=== PATIENT | male | born 1980 | race Caucasian/White ===

== ENCOUNTER 2022-10-26 04:02 | Outpatient (CLI) | payer BC, SELFPAY ==
[2022-10-26 07:54] LABS: MCH 32.1 pg (27.0-33.0); MCHC 33.3 % (32.0-36.0); MCV 97 fL (80-95); MPV 10.7 fL (8.0-11.0); Platelet Count 237 10^3/uL (130-400); RBC 5.95 10^6/uL (4.36-5.78); RDW 12.9 % (11.8-14.1); RDW-SD 46.1 fL; WBC 7.17 10^3/uL (4.4-10.8)
[2022-10-26 08:04] LABS: HGB 19.1 g/dL (13.5-17.5)
[2022-10-26 08:05] LABS: HCT 57.4 % (40.0-50.0)
[2022-10-26 09:27] LABS: ALT 72 U/L (16-63); AST 36 U/L (15-37); Alkaline Phosphatase 93 U/L (46-116); Anion Gap 8.2 mmol/L (3-11); BUN 15 mg/dL (7-18); Bilirubin, Total 0.8 mg/dL (0.2-1.0); CO2 29.8 mmol/L (21.0-32.0); CREATININE 1.3 mg/dL (0.70-1.30); Calcium 9.3 mg/dL (8.5-10.1); Calculated LDL 186 mg/dL (<100); Chloride 100 mmol/L (98-107); Cholesterol 258 mg/dL (<200); Estimated GFR 70.78 (mL/min/1.73m2); Glucose 93 mg/dL (74-106); HDL Cholesterol 38 mg/dL (40-60); Potassium 4.3 mmol/L (3.5-5.1); Sodium 138 mmol/L (136-145); TSH (W/Ref FT4) 2.04 uIU/mL (0.36-3.74); Triglyceride 171 mg/dL (<150)
[2022-10-26 12:21] LABS: Hemoglobin A1C 5.1 % (<5.7)
== END 2022-10-26 04:03 | disposition home or self-care (01) ==
LOC: LBO 04:02
PROVIDERS: PCP Nurse Practitioner Family; Visit Provider Nurse Practitioner Family
DX: R53.83 Other fatigue (principal); Z13.220 Encounter for screening for lipoid disorders; Z13.1 Encounter for screening for diabetes mellitus
CPT/HCPCS: 36415; 80053; 80061; 85027; 83036; 84443

== ENCOUNTER 2023-01-12 07:56 | Outpatient (CLI) | payer BC, SELFPAY ==
[2023-01-12 12:14] LABS: Abs Immature Grans 0.07 10^3/uL (0.0-0.06); Absolute Basophil Count 0.08 10^3/uL (0.0-0.2); Absolute Eosinophil Count 0.22 10^3/uL (0.0-0.7); Absolute Lymphocyte Count 1.91 10^3/uL (1.2-3.4); Absolute Monocyte Count 0.88 10^3/uL (0.1-0.8); Absolute Neutrophil Count 4.37 10^3/uL (1.2-6.7); Basophils % 1.1; Eosinophils % 2.9; HCT 49.4 % (40.0-50.0); HGB 16.5 g/dL (13.5-17.5); Immature Grans % 0.9; Lymphocytes % 25.4; MCH 32.8 pg (27.0-33.0); MCHC 33.4 % (32.0-36.0); MCV 98 fL (80-95); Monocytes % 11.7; Platelet Count 234 10^3/uL (130-400); RBC 5.03 10^6/uL (4.36-5.78); RDW 13.3 % (11.8-14.1); RDW-SD 48.8 fL; WBC 7.53 10^3/uL (4.4-10.8)
== END 2023-01-12 07:57 | disposition home or self-care (01) ==
PROVIDERS: PCP Nurse Practitioner Family; Visit Provider Nurse Practitioner Family
DX: R71.8 Other abnormality of red blood cells (principal)
CPT/HCPCS: 36415; 85025

== ENCOUNTER 2023-12-06 03:02 | Outpatient (CLI) | payer BC, SELFPAY ==
[2023-12-06 13:49] LABS: Abs Immature Grans 0.02 10^3/uL (0.0-0.06); Absolute Basophil Count 0.08 10^3/uL (0.0-0.2); Absolute Eosinophil Count 0.12 10^3/uL (0.0-0.7); Absolute Lymphocyte Count 1.76 10^3/uL (1.2-3.4); Absolute Monocyte Count 0.45 10^3/uL (0.1-0.8); Absolute Neutrophil Count 3.97 10^3/uL (1.2-6.7); Basophils % 1.3 %; Eosinophils % 1.9 %; HCT 52.8 % (40.0-50.0); HGB 17.9 g/dL (13.5-17.5); Immature Grans % 0.3 %; Lymphocytes % 27.5 %; MCH 32.7 pg (27.0-33.0); MCHC 33.9 % (32.0-36.0); MCV 96 fL (80-95); Platelet Count 243 10^3/uL (130-400); RBC 5.48 10^6/uL (4.36-5.78); RDW 11.7 % (11.8-14.1)
[2023-12-06 14:31] LABS: Iron 149 ug/dL (65-175); Total Iron Binding Capacity 321 ug/dL (250-450)
[2023-12-06 14:34] LABS: Calculated LDL 191 mg/dL (<100); Cholesterol 276 mg/dL (<200); Ferritin 386 ng/mL (26-388); HDL Cholesterol 47 mg/dL (40-60); TSH (W/Ref FT4) 1.48 uIU/mL (0.36-3.74); Triglyceride 191 mg/dL (<150); Vitamin B12 1191 pg/mL (193-986)
[2023-12-07 08:48] LABS: Transferrin 257 mg/dL (201-352)
[2023-12-12 13:36] LABS: Testosterone, Free 4.35 ng/dL (4.46-17.1); Testosterone, Total 163 ng/dL (240-950)
== END 2023-12-06 03:03 | disposition home or self-care (01) ==
LOC: LBO 03:02
PROVIDERS: PCP Nurse Practitioner Family; Visit Provider Nurse Practitioner Family
DX: R23.1 Pallor (principal); R23.2 Flushing; R53.83 Other fatigue; Z13.1 Encounter for screening for diabetes mellitus; Z13.220 Encounter for screening for lipoid disorders
CPT/HCPCS: 36415; 80061; 84402; 84403; 82607; 82728; 83036; 83540; 83550; 84443; 84466; 85025

== ENCOUNTER 2024-01-22 10:54 | Day surgery (SDC) | payer BC, SELFPAY ==
--- NOTE | 2024-01-21 14:38 | W.PM.OP ---
Operative Note Operative Note PRE-OP DIAGNOSIS: umbilical hernia PROCEDURE: open ubilical hernia w/ mesh SURGEON: Ava Nevarez ATOMIC FUEL ASSEMBLER: Etta Rose ANESTHESIA TYPE: Local By Surgeon and General LMA/ETT Refer to Anesthesia Record COMPLICATIONS: None Patient was transported to: PACU Patient's condition: stable Procedure Description: : The patient is seen at the request of for symptomatic umbilical hernia and is here today for repair. Informed consent was obtained, explaining risks and benefits of the procedure including but not limited to bleeding, infection, pneumonia, blood clots, recurrence, chronic pain, and chronic numbness, reaction to mesh necessitating removal, complications of anesthesia and other unforetold complications. DESCRIPTION OF PROCEDURE: The patient was brought to the operating suite and placed in supine position. Anesthesia was administered per the Department of Anesthesia. Patient prepped and draped in the usual sterile fashion using DuraPrep scrub solution. IV antibiotics were administered. Pause for the cause was done. A 1-inch incision was made in the inferiorly to the umbilicus. Umbilicus was dissected off the fascia. The fascia was dissected off from surrounding tissue. There is omentum protruding. This was returned to the abdomen. It is not infarcted. A small Kerlix/Ventrilux patch was then placed in the defect, the defect was closed, oversewn with 2-0 vicryl and was copiously irrigated. Deep tissue was approximated with 3-0 Vicryl and skin was approximated with 4-0 Monocryl in a running subcuticular fashion. Skin glue and sterile dressings are applied. The patient tolerated the procedure well without complications and was transferred to recovery room in stable condition. Date of Procedure: 01/22/24
--- NOTE | 2024-01-21 14:41 | PDOC.DSDIS_ITS ---
Date of service: 01/22/24 Discharge Plan Disposition Patient Disposition: Home Condition: Good Discharge Details Reason For Visit: umbilical hernia repair Attending Provider: Ava Nevarez Primary Care Provider: Brennen Jackson Home Meds and New Rx's Prescriptions: No Action lisinopril 10 mg tablet 10 mg PO DAILY Qty: 90 3RF testosterone cypionate 200 mg/mL oil 100 mg IM QWEEK Qty: 10 0RF Discharge Instructions Additional Instructions: Dr. Nevarez HERNIA REPAIR ? POSTOPERATIVE INSTRUCTIONS Patients who have this type of surgery can usually be expected to return to work within two weeks and have minimal amounts of discomfort. ? ACTIVITY: The day of surgery should be spent resting. However, you can be up for short periods of time, I.E., going to the bathroom or kitchen. Avoid lifting or straining. On the day following surgery, you can be up and about as desired. ? LIFTING: Restrict your lifting to no more than five (5) pounds for two weeks after surgery. ??We will decide when you are done with restrictions and when you can return to work, at your follow-up appointment.? No sexual activity for two weeks.? ? DIET: There are no dietary restrictions following surgery. However, you may want to start with small amounts of liquids to avoid nausea the day of surgery. ? INCISION CARE: You will notice purple skin glue closing the incision.? Do not peel this off- it will wear off on its own.? After 24 hours you may shower. The dressing may be replaced for comfort, but is not necessary. ?An ice bag may be applied to the incision for 72 hours following surgery. ? SIGNS OF INFECTION: It is not unusual to have some black and blue discoloration of the skin around the incision. ?It will slowly disappear. If you have any increased redness, drainage, fever (above 100 degrees), please contact your doctor for an examination. ? DISCOMFORT: You may expect to have some mild discomfort at the incision sight. If severe pain develops you should contact your doctor for further instructions. ? URINATION: Patients who have surgery occasionally have problems urinating. If you experience problems and are not able to urinate within 6 hours following your surgery, please call your doctor immediately or go to your nearest Emergency Room for evaluation. ? DRIVING: NO driving for three (3) days after surgery, or if you are still taking narcotic pain medication.? ? MEDICATIONS: Alternate Tylenol 1000mg by mouth every 8 hours and Ibuprofen 600mg every 6 hours. ?Make sure you take ibuprofen with food and not on an empty stomach. ?Take the Tylenol and ibuprofen continuously for the first 72hrs- not just when you have pain.? Use the tramadol for breakthrough pain/pain >7.? Use I CE!?? Twenty minutes on, and then off, continuously for the first 72hours. If you are taking narcotic pain medication, follow the instructions on the label and do not drive. Pain medications can make you very constipated. Make sure you are moving your bowels daily. If not, take Miralax or Milk of Magnesia.?? Anesthesia makes you very constipated.? Take a dose of milk of magnesia the morning after surgery. ? REPORT: Unusual swelling, severe pain, unresolved nausea, signs of infection, or difficulty in urination to your surgeon. Follow up in clinic with Dr. Nevarez in 2 weeks.? [phone] Equipment/Supplies: Non-Weight Bearing Crutches and On-Q Activity:: see above Remove Dressings/Wound Care:: 24 hours Shower/Bathe:: 24 hours Diet:: As Tolerated Discharge Orders Discharge Orders: Discharge Order (Routine); Ordered 01/21/24 Ordered By: Ava Nevarez DS: Diagnosis Discharge Diagnosis (1) Hypertension: Status: Acute (2) GERD (gastroesophageal reflux disease): Status: Chronic (3) Umbilical hernia: Status: Acute Asessment and Plan: The patient is doing well post-op from their umbilical hernia surgery.? They are having no nausea or vomiting. They are tolerating liquids and a snack. The pt is not having any chest pain or SOB.? Their pain is adequately controlled. They have been able to urinate.? ?HEENT:? no eye pain/drainage/redness/swelling. Mild sore throat ?Cardio- NSR, no chest pain, BP stable- see VS record ?Pulm: no sob or productive cough. No hemoptysis ?Incision- dressing is c/d/i w/ no excessive bleeding or drainage ?I discussed with the patient the findings at the time of surgery and the patient?s progress. ?We reviewed expectations at home; what the patient could expect for recovery time, and in the post-operative period.? We discussed the importance of walking to avoid blood clots and pneumonia.? We discussed and reviewed the patient's post-operative wound care and dressing needs.?? We reviewed their step-parkinson pain management plan, Rx called to the pharmacy of their choice.? We reviewed activity and limitations-see discharge instructions. We reviewed warning signs, and when to seek medical attention- see d/c instructions.?? Patient was given a postoperative follow-up appointment. Patient verbalized understanding of their postoperative instructions, how do to take care of themselves and their incision, and the pain management plan. Please see discharge instructions.? (4) NIDIA on CPAP: Status: Chronic
[2024-01-22 11:03] VITALS: BP 133/83; PULSE 102; RESP 16; TEMP 36.1; O2SAT 97
[2024-01-22] MEDS: Acetaminophen 500 MG TAB 1000 MG PO (11:13)
[2024-01-22] MEDS: Gabapentin 300 MG CAP 600 MG PO (11:13)
[2024-01-22] MEDS: Normal Saline 500 ML 30 ML IV (11:24)
== END 2024-01-22 10:55 | disposition home or self-care (01) ==
LOC: SUR 10:55
PROVIDERS: PCP Nurse Practitioner Family; Visit Provider Surgery
DX: Z53.09 Procedure and treatment not carried out because of other contraindication (principal)
CPT/HCPCS: J2704

== ENCOUNTER 2024-02-01 06:16 | Day surgery (SDC) | payer BC, SELFPAY ==
--- NOTE | 2024-01-31 21:49 | ROE_ITS ---
Operative Note Operative Note PRE-OP DIAGNOSIS: Umbilical hernia POST-OP DIAGNOSIS: same PROCEDURE: Open umbilical hernia with mesh-8 cm SURGEON: Ava Salter PEDIATRIC CARE COORDINATOR: Etta Rose ANESTHESIA TYPE: Local By Surgeon and General LMA/ETT Refer to Anesthesia Record ESTIMATED BLOOD LOSS: 5 PATHOLOGY: none sent COMPLICATIONS: None Patient was transported to: PACU Patient's condition: stable Procedure Description: The pt is here today for symptomatic umbilical hernia and is here today for repair. Informed consent was obtained, explaining risks and benefits of the procedure including but not limited to bleeding, infection, pneumonia, blood clots, recurrence, chronic pain or chronic numbness, reaction to mesh necessitating removal, complications of anesthesia and other unforetold complications. DESCRIPTION OF PROCEDURE: The patient was brought to the operating suite and placed in supine position. Anesthesia was administered per the Department of Anesthesia. Nerve block is done per the Dept of anesthesia w/ experel.? ?Patient prepped and draped in the usual sterile fashion using DuraPrep scrub solution. IV antibiotics were administered. Pause for the cause was done. 30cc of .25% Marcaine is used for local anesthetic. A 1.5-inch incision was made in the inferiorly to the umbilicus. Umbilicus was dissected off the fascia. The surrounding tissue is dissected off the fascia.? Omentum is protruding through the defect. This was returned to the abdomen. It is not infarcted. The defect is 5 cm in size. A large 8 cm Kerlix patch was then placed in the defect, the defect was closed, over sewn with 2-0 vicryl and was copiously irrigated. An additional 10cc of Experel is is instilled into the wound at the time of closure. Deep tissue was approximated with 3-0 Vicryl and skin was approximated with 4-0 Monocryl in a running subcuticular fashion. Skin glue was applied. The patient tolerated the procedure well without complications and was transferred to recovery room in stable condition. AVA SALTER, Date of Procedure: 02/01/24
--- NOTE | 2024-01-31 21:55 | W.PM.DSUDISC ---
Date of service: 02/01/24 Discharge Plan Disposition Patient Disposition: Home Condition: Improving Discharge Details Reason For Visit: umbilical hernia repair Attending Provider: Ava Nevarez Primary Care Provider: Brennen Jackson Home Meds and New Rx's Prescriptions: New tramadol 50 mg tablet 50 mg PO Q4H PRNQty: 14 0RF Continued lisinopril 10 mg tablet 10 mg PO DAILY Qty: 90 3RF testosterone cypionate 200 mg/mL oil 100 mg IM QWEEK Qty: 10 0RF Discharge Instructions Additional Instructions: Dr. Nevarez HERNIA REPAIR ? POSTOPERATIVE INSTRUCTIONS Patients who have this type of surgery can usually be expected to return to work within two weeks and have minimal amounts of discomfort. ? ACTIVITY: The day of surgery should be spent resting. However, you can be up for short periods of time, I.E., going to the bathroom or kitchen. Avoid lifting or straining. On the day following surgery, you can be up and about as desired. ? LIFTING: Restrict your lifting to no more than five (5) pounds for two weeks after surgery. ??We will decide when you are done with restrictions and when you can return to work, at your follow-up appointment.? No sexual activity for two weeks.? ? DIET: There are no dietary restrictions following surgery. However, you may want to start with small amounts of liquids to avoid nausea the day of surgery. ? INCISION CARE: You will notice purple skin glue closing the incision.? Do not peel this off- it will wear off on its own.? After 24 hours you may shower. The dressing may be replaced for comfort, but is not necessary. ?An ice bag may be applied to the incision for 72 hours following surgery. ? SIGNS OF INFECTION: It is not unusual to have some black and blue discoloration of the skin around the incision. ?It will slowly disappear. If you have any increased redness, drainage, fever (above 100 degrees), please contact your doctor for an examination. ? DISCOMFORT: You may expect to have some mild discomfort at the incision sight. If severe pain develops you should contact your doctor for further instructions. ? URINATION: Patients who have surgery occasionally have problems urinating. If you experience problems and are not able to urinate within 6 hours following your surgery, please call your doctor immediately or go to your nearest Emergency Room for evaluation. ? DRIVING: NO driving for three (3) days after surgery, or if you are still taking narcotic pain medication.? ? MEDICATIONS: Alternate Tylenol 1000mg by mouth every 8 hours and Ibuprofen 600mg every 6 hours. ?Make sure you take ibuprofen with food and not on an empty stomach. ?Take the Tylenol and ibuprofen continuously for the first 72hrs- not just when you have pain.? Use the tramadol for breakthrough pain/pain >7.? Use ICE!?? Twenty minutes on, and then off, continuously for the first 72hours. If you are taking narcotic pain medication, follow the instructions on the label and do not drive. Pain medications can make you very constipated. Make sure you are moving your bowels daily. If not, take Miralax or Milk of Magnesia.?? Anesthesia makes you very constipated.? Take a dose of milk of magnesia the morning after surgery. ? REPORT: Unusual swelling, severe pain, unresolved nausea, signs of infection, or difficulty in urination to your surgeon. Follow up in clinic with Dr. Nevarez in 2 weeks.? IF you do not have an appointment set up already, please call [phone] to schedule an appointment. Activity:: see above Remove Dressings/Wound Care:: 24 hours Shower/Bathe:: 24 hours Diet:: As Tolerated Discharge Orders Discharge Orders: Discharge Order (Routine); Ordered 02/01/24 Ordered By: Ava Nevarez DS: Diagnosis Discharge Diagnosis (1) Hyperlipidemia: Status: Acute (2) GERD (gastroesophageal reflux disease): Status: Chronic (3) Umbilical hernia: Status: Acute Asessment and Plan: The patient is doing well post-op from their open umbilical hernia surgery.? They are having no nausea or vomiting. They are tolerating liquids and a snack. The pt is not having any chest pain or SOB.? Their pain is adequately controlled. They have been able to urinate.? ?HEENT:? no eye pain/drainage/redness/swelling. Mild sore throat ?Cardio- NSR, no chest pain, BP stable- see VS record ?Pulm: no sob or productive cough. No hemoptysis ?Incision- dressing is c/d/i w/ no excessive bleeding or drainage ?I discussed with the patient the findings at the time of surgery and the patient?s progress. ?We reviewed expectations at home; what the patient could expect for recovery time, and in the post-operative period.? We discussed the importance of walking to avoid blood clots and pneumonia.? We discussed and reviewed the patient's post-operative wound care and dressing needs.?? We reviewed their step-parkinson pain management plan, Rx called to the pharmacy of their choice.? We reviewed activity and limitations-see discharge instructions. We reviewed warning signs, and when to seek medical attention- see d/c instructions.?? Patient was given a postoperative follow-up appointment. Patient verbalized understanding of their postoperative instructions, how do to take care of themselves and their incision, and the pain management plan. Please see discharge instructions.? (4) NIDIA on CPAP: Status: Chronic
[2024-02-01] VITALS (18 sets, daily range): BP systolic 101–163; BP diastolic 48–83; PULSE 84–108; RESP 14–22; TEMP 36.1–36.4; O2SAT 92–97; BMI 35.2
[2024-02-01] MEDS: Lactated Ringers 1,000 ML 80 ML IV (06:40)
[2024-02-01] MEDS: Acetaminophen 500 MG TAB 1000 MG PO (06:41)
[2024-02-01] MEDS: Gabapentin 300 MG CAP 600 MG PO (06:41)
--- NOTE | 2024-02-01 06:54 | W.ANESPRE ---
General Info Date of Service Date Performed: 02/01/24 Height: 6 ft 2 in Weight: 124.5 kg Body Mass Index (BMI): 35.2 Surgical Procedure: Operation Date: 02/01/24 07:40 Proposed Procedure Side Surgeon p Herniorrhaphy Umbilical w/Mesh Ava Nevarez, Meds Allergies and Home Medications Allergies Allergy/AdvReac Type Severity Reaction Status Date / Time No Known Allergies Allergy Verified 02/01/24 06:21 Home Medication ?Medication ?Instructions ?Recorded lisinopril 10 mg tablet 10 mg PO DAILY #90 tabs 12/14/23 testosterone cypionate 200 mg/mL 100 mg (0.5 mL) IM QWEEK #10 mL 01/09/24 intramuscular oil tramadol 50 mg tablet 50 mg PO Q4H PRN #14 tabs 01/31/24 Current Visit Medications: Current Medications Generic Name Dose Route Start Last Admin Trade Name Freq PRN Reason Stop Dose Admin Acetaminophen 1,000 mg 02/01/24 06:00 02/01/24 06:41 Acetaminophen 500 Mg Tab PO 02/01/24 23:59 1,000 mg PREOP ISABEL Administration Gabapentin 600 mg 02/01/24 06:00 02/01/24 06:41 Gabapentin 300 Mg Cap PO 02/01/24 23:59 600 mg PREOP ISABEL Administration Cefazolin Sodium/Dextrose 2 gm in 50 mls @ 100 mls/hr 02/01/24 06:00 Ancef Duplex IVPB 02/01/24 23:59 PREOP ISABEL Ringer's Solution 1,000 mls @ 80 mls/hr 02/01/24 06:15 02/01/24 06:40 IV 03/02/24 06:14 80 mls/hr INFUSION ISABEL Administration IV Miscellaneous Supplies 1 each 02/01/24 06:00 Iv Access IV 02/01/24 23:59 DIRECTED ISABEL Sodium Chloride 0 ml 02/01/24 06:00 Normal Saline Flush 10 Ml Syr IV 02/01/24 23:59 PRN PRN Sodium Chloride 0 ml 02/01/24 06:00 Normal Saline 10 Ml Vial IJ 02/01/24 23:59 DIRECTED PRN Sterile Water 0 ml 02/01/24 06:00 Water,Injection,Sterile 10 Ml Vial IJ 02/01/24 23:59 DIRECTED PRN PFSH Active Problems Active Problems: Problem Status Onset Code NIDIA on CPAP Chronic G47.33 Hypogonadism in male Acute E29.1 Elevated hematocrit Acute R71.8 Umbilical hernia Acute K42.9 Fatigue Acute R53.83 Snoring Acute R06.83 GERD (gastroesophageal reflux disease) Chronic K21.9 Hypertension Acute 09/07/17 I10 Hyperlipidemia Acute 09/07/17 E78.5 Tobacco Smoking/Tobacco Use Status: Never Passive smoking exposure: Yes Second hand exposure: Yes Alcohol Alcohol Intake: current Alcohol intake frequency: a few times a week Alcohol type: beer Substance Use Substance use: Never Substance use type: does not use Vital Signs and Lab Results Vital Signs Most Recent Vital Signs in EMR: Most Recent Vital Signs Temp Pulse Resp BP Pulse Ox 36.4 C L 108 H 18 163/83 H 96 02/01/24 06:23 02/01/24 06:23 02/01/24 06:23 02/01/24 06:23 02/01/24 06:23 Lab Results Blood Type / Crossmatch: No Data to Display Complete Blood Count: No Data to Display Complete Metabolic Panel: No Data to Display Liver Function Panel: No Data to Display Coagulation Panel: No Data to Display Cardiac Panel: No Data to Display Arterial Blood Gas: No Data to Display Venous Blood Gas: No Data to Display Pancreas Panel: No Data to Display Thyroid Panel: No Data to Display Infectious Disease: No Data to Display Blood Cultures: No Data to Display Toxicology Panel: No Data to Display Anesthesia Assessment and Plan Anesthesia History Personal History: No History of General Anesthesia Family History: No Family History of Anesthesia Complications Exercise Tolerance Exercise Tolerance: Metabolic Equivalents>4 Pertinent Negatives Pertinent Negatives: No Symptoms of GERD, No Major Cardiovascular Symptoms or Complaints, No Major Pulmonary Symptoms or Complaints and No History of CVA/TIA Cardiac & Pulmonary Exam Cardiac Exam: Normal S1/S2 Heart Sounds Pulmonary Exam: Clear Bilateral Breath Sounds Implantable Cardiac Device Does patient have a Pacemaker or an ICD?: No Airway Exam Known Difficult Airway: No Mallampati Class: 2 Mouth Opening: Normal (> 3cm) Thyromental Distance: Greater than 3 cm Facial Hair: Full Palomares Neck Range of Motion: Full ROM Neck Circumference: Normal Teeth Condition: Normal Dentition ASA Classification ASA Score: ASA 2 Emergency Case?: No NPO Status NPO Status: NPO Clears >2 hours, Solids >8 hours Anesthesia Plan Resuscitation Status: Full Code Anesthesia Technique: General Anesthesia Airway Planned: Endotracheal Tube Pain Management: Surgeon and patient request nerve block Monitors Used: Standard Monitors
[2024-02-01] MEDS: ceFAZolin 2 GM/50 ML BAG IVPB (08:11)
[2024-02-01] MEDS: Bupivacaine 0.25% Pres-Free 30 ML VIAL (09:08)
[2024-02-01] MEDS: Bupivacaine LIPOSOME/PF 133 MG/10 ML VIAL IJ (09:14)
--- NOTE | 2024-02-01 09:19 | W.ANESNERVE ---
Nerve Block Single Injection Procedure Date and Time Date Performed: 02/01/24 Procedure Start: 08:07 Location Where Procedure Performed Procedure Location: Operating Room Procedure Stop: 08:20 Reason Performed: Postoperative Analgesia Requesting Provider: Ava Nevarez Timeout Performed Timeout Performed: Yes Monitoring Used ECG, Blood Pressure, SpO2, ETCO2 and See EMR for corresponding vital signs Sterility Sterility: Hand Hygiene, Surgical Cap, Surgical Mask, Sterile Gloves and Chlorhexidine Sedation Given During Procedure Sedation Given (Indicate Dose Given): No Sedation given Patient Mental Status Patient Mental Status: Performed under general anesthesia Nerve Block 1st Nerve Block: Laterality: Bilateral Block Type: Rectus Sheath (Bilateral) Ultrasound Image Saved?: Yes Needle / Catheter Used: 100mm SonoPlex II Local Anesthetic Bolus (Indicate Dose Given): Lidocaine used for local infiltration of skin, Injected in 3-5ml increments after negative blood aspiration, Blood noted on aspiration (On left side, tinge not dottie. Proceeded), Half of Total block solution given into each side, Bupivacaine 0.25% Dose:: 30 ml and Exparel Dose:: 10 ml Additives (Indicate Dose Given): Normal Saline Ultrasound: Sterile probe cover and gel used Nerve Stimulator: Not Used Paresthesia: None Procedure Tolerated: No Complications and Patient tolerated well Procedure Outcome: Successful Performed By: Jay Parikh
--- NOTE | 2024-02-01 10:59 | W.ANESPOSTOP ---
Postoperative Evaluation Date, Time and Location Date Performed: 02/01/24 Time Performed: 10:38 Patient Location: Day Surgery Unit Vital Signs Most Recent Imported Vital Signs: Most Recent Vital Signs Temp Pulse Resp BP Pulse Ox 36.3 C L 92 H 18 131/81 94 02/01/24 10:37 02/01/24 10:37 02/01/24 10:37 02/01/24 10:37 02/01/24 10:37 Pain Score Most Recent Pain Score: Most Recent Pain Score Pain Level 1 02/01/24 10:37 Assessment Mental Status: Awake (Alert & Oriented to Patient Baseline) Airway and Respiratory Function: Patent airway with normal (patient baseline) respiratory exam Cardiovascular Function: Hemodynamically Stable Hydration Status: Adequately Hydrated Nausea & Vomiting: No Nausea or Vomiting Pain: Pain is tolerable per patient Peripheral Nerve Block: Regional nerve block not resolved at time of post operative discharge
== END 2024-02-01 11:02 | disposition home or self-care (01) ==
LOC: SUR 06:17
PROVIDERS: PCP Nurse Practitioner Family; Visit Provider Surgery
PROC: (CPT 49593; principal; 2024-02-01 07:30)
DX: K42.9 Umbilical hernia without obstruction or gangrene; G47.33 Obstructive sleep apnea (adult) (pediatric)
CPT/HCPCS: 49593; 64488; C1781; C9290; J0665; J0690; J1100; J1885; J2405; J2704

== ENCOUNTER 2024-03-11 01:14 | Outpatient (CLI) | payer SELFPAY ==
--- OUTSIDE RECORDS SUMMARY | 2024-03-11 01:39 | XMS_ITS | Encounter Summary ---
[place] [address] Care Team Providers Care Nurse Discharge Name Role Phone Bethel Titus MD Primary Care Provider U [email or web address] Reason for Visit * Reason Onset Date Comments Referral 03/13/2011 Encounter Details Date Type Department Care Team (Late st Contact Info) Description 03/13/2011 Telephone [place] [phone] Jared Conti MD Referral Social History Tobacco Use Types Packs/Day Years Used Date Smoking Tobacco: Never Assessed Sex and Gender Information Value Date Recorded Sex Assigned at Not on file Gender Identity Not on file Sexual Orientation Not on file documented as of this encounter Plan of Treatment Not on file documented as of this encounter Visit Diagnoses Not on filedocumented in this encounter Care Teams Nurse Discharge Relationship Specialty Start Date End Date Bethel Titus MD PCP - General 12/28/09 06/27/15 documented as of this encounter
--- OUTSIDE RECORDS SUMMARY | 2024-03-11 01:39 | XMS_ITS | Clinical Summary ---
Author Organization [facility] [place] [address] Care Team Providers Care Claims Adjudicator Name Role Phone Unavailable Primary Care Provider Unavailabl e Allergies No known active allergies Active Problems Problem Noted Date Diagnosed Date Healthcare maintenance 02/20/2011 Social History Tobacco Use Types Packs/Day Years Used Date Smoking Tobacco: Never Assessed Sex and Gender Information Value Date Recorded Sex Assigned at Not on file Gender Identity Not on file Sexual Orientation Not on file Plan of Treatment Health Maintenance Due Date Last Done Comments HIV screen 1998 Hepatitis C Screening 1998 Lipid Screening 1998 Hepatitis B vaccine (0-59 yrs) (1) 11/14/1999 Tetanus/Diphtheria/Pertussis Vaccines (1 - Tdap) 11/13 Covid-19 Vaccine ( - 2023- season) 2023 Influenza (Flu) vaccine (1 o f 1 - Influenza standard series) 10/07/2023
--- OUTSIDE RECORDS SUMMARY | 2024-03-11 01:39 | XMS_ITS | Encounter Summary ---
Author Organization [facility] Address [facility] [place] [address] Care Team Providers Care Pulmonologist Name Role Phone Quinn Markham DO Primary Care Provider [phone] Encounter Details Date Type Department Care Team (Late st Contact Info) Description 12/04/2006 Orders [place] [address] Jorden Rodriguez MD [facility] [place] [address] Social History Tobacco Use Types Packs/Day Years Used Date Smoking Tobacco: Never Assessed Sex and Gender Information Value Date Recorded Sex Assigned at Not on file Gender Identity Not on file Sexual Orientation Not on file documented as of this encounter Plan of Treatment Not on file documented as of this encounter Procedures Procedure Name Priority Date/Time Associated Diagnosis Comments SURGICAL PATHOLOGY REPORT Routine 12/04/2006 6:11 PM EDT documented in this encounter Results * Surgical Pathology Report (12/04/2006 6:11 PM EDT) Surgical Pathology Report [id number] ? Location: The signing pathologist has (i) examined the relevant preparation(s) for the specimen(s) and (ii) rendered or confirmed the diagnosis(es). . ?Pathology Surgical Pathology Final Report Clinical Information Specimen Submitted: A - Bx: TI B - Bx: Random Colon C - Bx: Rectum Clinical History: Diarrhea - mild patchy erythema in rectum Normal remainder of colon and TI R/O microscopic inflammation Clinical Diagnosis: 1 mo refractory diarrhea, pain + fevers Gross Description A - Labeled/Fixative: TI Bx, formalin. Qty/Size/Weight: ?Three, averaging 0.2 x 0.2 x 0.2 cm. Tissue Description: ?? Soft, rogel tissues. Sections/Processi ng: ??(T1) B - Labeled/Fixative: Random colon Bx, formalin. Qty/Size/Weight: ?Six, ranging from 0.1 cm to 0.4 cm. Tissue Description: ?? Soft, rogel tissues. Sections/Processi ng: ??(T2) C - Labeled/Fixative: Rectum Bx, formalin. Qty/Size/Weight: ?Two, averaging 0.4 x 0.2 x 0.2 cm. Tissue Description: ?? Soft, rogel tissues. Sections/Processi ng: ??(T1) ??celina/SNS Microscopic Description Slides reviewed, microscopic description not recorded. Diagnosis A - Terminal Ileum biopsy: ? Small intestinal mucosa with normal villous architecture and increased ? intra-epithelial lymphocytes (SEE NOTE). ? NOTE: A CD3 immunostain confirms the increase in intra-epithelial ? lymphocytes. The morphological findings are etiologically non-specific ? but raise the possibility of celiac disease. Other possibilities ? include an infectious process or inflammatory bowel disease. No active ? crypt inflammation or granulomas are present in these biopsies. ? Serological and endoscopic correlation is recommended. B - Random Colon biopsy: ? Colonic mucosa within normal limits. C - Rectum biopsy: ? Colonic mucosa within normal limits. . Diagnosis CR-0 12/07/06 12/10/06 Verified by: ? Claus Osborne MD ?Pathologist ?(Electronic Signature) The attending pathologist whose signature appears on this report has reviewed all diagnostic slides and has edited the gross and/or microscopic portion of the report in rendering the final pathologic diagnosis. GORGE GREY 12/04/2006 6:11 PM EDT Jorden Rodriguez MD PATHOLOGY/CYTOLOGY O DEBBIE Performing Organization Address City/State/[facility] Co ar Phone Number [facility] documented in this encounter Visit Diagnoses Not on filedocumented in this encounter Care Teams Pulmonologist Relationship Specialty Start Date End Date Quinn Markham, [facility] [address] [place] [address] PCP - General Family Medicine 06/28/15 11/09/16 documented as of this encounter
[2024-03-18 15:39] LABS: Testosterone, Free 9.56 ng/dL (4.46-17.1); Testosterone, Total 335 ng/dL (240-950)
== END 2024-03-11 01:15 | disposition home or self-care (01) ==
LOC: LBO 01:14
PROVIDERS: PCP Nurse Practitioner Family; Visit Provider Nurse Practitioner Family
DX: E29.1 Testicular hypofunction (principal)
CPT/HCPCS: 36415; 84402; 84403